=== PATIENT | male | born 1990 ===

== ENCOUNTER 2018-02-22 11:43 | Emergency (ER) | payer OTHER ==
[2018-02-22 11:49] VITALS: BMI 30.7
[2018-02-22 11:50] VITALS: BP 106/67; PULSE 55; RESP 17; TEMP 97.8; O2SAT 98
--- NOTE | 2018-02-22 12:18 | ED PDOC ---
HPI: Back Time Seen by Provider: 02/22/18 12:13 Chief Complaint (Nursing): Back Pain Chief Complaint (Provider): Back Pain, right shoulder pain History/Exam Limitations: no limitations Onset/Duration Of Symptoms: Persistent Current Symptoms Are (Timing): Still Present Additional Complaint(s): 27 year old male arrives to ED with a complaint of lower back pain radiating to his right leg for the past 2 weeks. He denies any strenuous activities, falls, or trauma. Patient states he has been taking Tylenol with minimal relief; last dose was yesterday afternoon. Patient also complains of ongoing right shoulder pain for the past 2 weeks as well with no recent trauma or injury. Patient states he is repetitive motion with right arm at work on a regular basis. He is [id number]. PMD: none Past Medical History Reviewed: Historical Data, Nursing Documentation, Vital Signs Vital Signs: Last Vital Signs Temp 97.8 F 02/22/18 11:49 Pulse 55 L 02/22/18 11:49 Resp 17 02/22/18 11:49 BP 106/67 02/22/18 11:49 Pulse Ox 98 02/22/18 11:49 - Medical History PMH: No Chronic Diseases - Surgical History Surgical History: Appendectomy - Family History Family History: States: No Known Family Hx - Living Arrangements Living Arrangements: With Family - Social History Current smoker - smoking cessation education provided: Yes Alcohol: None Drugs: Denies - Home Medications Home Medications: Ambulatory Orders Medication Instructions Recorded Cyclobenzaprine [Cyclobenzaprine 10 mg PO TID PRN #20 tab 02/22/18 HCl] Naproxen [Naprosyn] 500 mg PO BID #20 tab 02/22/18 - Allergies Allergies/Adverse Reactions: Allergies Allergy/AdvReac Type Severity Reaction Status Date / Time No Known Allergies Allergy Verified 02/22/18 12:09 Review of Systems ROS Statement: Except As Marked, All Systems Reviewed And Found Negative Musculoskeletal: Positive for: Shoulder Pain (right, x 2 weeks), Back Pain (lower, radiates to right leg on on occasion) Neurological: Negative for: Headache, Dizziness Physical Exam - Reviewed Nursing Documentation Reviewed: Yes Vital Signs Reviewed: Yes - Physical Exam Appears: Positive for: Well, Non-toxic, No Acute Distress Skin: Positive for: Normal Color. Negative for: Rash Eye Exam: Positive for: Normal appearance Neck: Positive for: Normal, Painless ROM Cardiovascular/Chest: Positive for: Regular Rate, Rhythm Respiratory: Positive for: Normal Breath Sounds. Negative for: Wheezing, Respiratory Distress Back: Positive for: Vertebral Tenderness (midline along lumbar spine; able to heel and toe walk). Negative for: Other (step-off; (-) straight-leg raise bilaterally) Extremity: Positive for: Other (Mild tenderness anterior aspect of right shoulder with full range of motion, strong right handgrip) Neurologic/Psych: Positive for: Alert (x3), Oriented, Gait (steaady). Negative for: Motor/Sensory Deficits - ECG O2 Sat by Pulse Oximetry: 98 (RA) Pulse Ox Interpretation: Normal - Other Rad LS spine and right shoulder x-ray X-Ray: Interpreted by Me, Viewed By Me X-Ray Interpretation: no fx, no dis Medical Decision Making Medical Decision Making: Initial Impression: 27 y/o male with low back pain and right shoulder pain Initial Plan: * Flexeril 10mg PO * Toradol 30mg IM * XR LS spine Patient reports improvement to pain after meds given. Prescriptions for Naprosyn and Flexeril provided. Patient referred to clinic and orthopedist on-call for follow up. Scribe Attestation: Documented by Jessa Flanagan, acting as a scribe for Jazmin Ball PA-C. Provider Scribe Attestation: All medical record entries made by the Scribe were at my direction and person ally dictated by me. I have reviewed the chart and agree that the record accurately reflects my personal performance of the history, physical exam, medical decision making, and the department course for this patient. I have also personally directed, reviewed, and agree with the discharge instructions and disposition. Disposition - Clinical Impression Clinical Impression: Back strain, Shoulder strain - Patient ED Disposition Is Patient to be Admitted: No Counseled Patient/Family Regarding: Studies Performed, Diagnosis, Need For Followup, Rx Given, Smoking Cessation - Disposition Referrals: Kemal Briceño MD [Staff Provider] - [facility] [Outside] Disposition: Routine/Home Disposition Time: 13:02 Condition: STABLE Additional Instructions: Take rx meds as directed. Rest and avoid heavy lifting. Follow up with clinic or with orthopedist for any persistent symptoms. Prescriptions: Cyclobenzaprine [Cyclobenzaprine HCl] 10 mg PO TID PRN #20 tab PRN Reason: Muscle Spasm Naproxen [Naprosyn] 500 mg PO BID #20 tab Instructions: Shoulder Sprain, Low Back Pain in Adults, Muscle Strain (DC), Back Exercises Forms: [facility] ([place]), [facility] ED School/Work Excuse
--- NOTE | 2018-02-22 14:00 | RAD ---
Date of service: 02/22/2018 PROCEDURE: Radiographs of the Lumbar Spine. HISTORY: low back pain COMPARISON: No prior. FINDINGS: BONES: Normal alignment. No listhesis. No fracture. DISC SPACES: Unremarkable. OTHER FINDINGS: None. IMPRESSION: Unremarkable radiographs of the lumbar spine.
--- NOTE | 2018-02-22 16:15 | RAD ---
Date of service: 02/22/2018 PROCEDURE: Radiographs of the Right Shoulder HISTORY: ongoing pain COMPARISON: No prior. FINDINGS: BONES: Normal. No fracture. JOINTS: Normal. Glenohumeral and acromioclavicular joints preserved. No osteoarthritis. SOFT TISSUES: Normal. OTHER FINDINGS: None. IMPRESSION: Normal radiographs of the right shoulder.
== END 2018-02-22 14:34 | disposition home or self-care (01) ==
LOC: H.ER 11:43
DX: S46.911A Strain of unspecified muscle, fascia and tendon at shoulder and upper arm level, right arm, initial encounter (principal); S39.012A Strain of muscle, fascia and tendon of lower back, initial encounter; X58.XXXA Exposure to other specified factors, initial encounter; Y92.89 Other specified places as the place of occurrence of the external cause; F17.200 Nicotine dependence, unspecified, uncomplicated
CPT/HCPCS: 72100; 73030; 96372; 99282; J1885